=== PATIENT | female | born 1940 | race Caucasian/White ===

== ENCOUNTER 2016-12-10 05:11 | Emergency (ER) | payer MEDICARE, OTHER ==
[~2016-12-10] VITALS: Ht 162.6 cm; Wt 68.2 kg
[~2016-12-10 05:11] MED LIST: CALC-975 PO; CARB15DR74 OP; CHOL500051 PO; DOCU240C41 PO; HYDR25TA4 PO; MELA1TAB10 PO; MULT1CAP33 PO; OMEG500C PO; OXAZ10CA PO; OXYB5TAB10 PO; ZOLP5TAB6 PO
[2016-12-10 05:16] VITALS: BP 159/92; PULSE 66; RESP 16; O2SAT 94
--- NOTE | 2016-12-10 05:31 | ED.REPORT ---
HPI-Bite: Human/Animal Date of Service Dec 10, 2016 ED Provider: Roderick Wright MD Pt is a 76 year old female presenting to the ED after being stung by a bee on her left hand complaining of swelling. She denies any other swelling besides her hand, SOB, wheezing, fever, chills, cough, nausea, vomiting, or diarrhea. Nursing Notes Stated Complaint: BEE STING LEFT HAND Chief Complaint: Skin Rash/Abscess Nursing Notes Reviewed: Yes Allergies: Coded Allergies: Penicillins (Verified Allergy, Unknown, Unknown, 12/10/16) adhesive tape (Verified Allergy, Unknown, 12/10/16) Scheduled Hydrochlorothiazide (Hydrochlorothiazide) 25 Mg Tablet 25 MG PO DAILY Melatonin (Melatonin 1 mg Tablet) 1 Each Tablet 1 MG PO HS Oxybutynin Chloride (Oxybutynin Chloride) 5 Mg Tablet 10 MG PO TID Scheduled PRN Zolpidem (Zolpidem) 5 Mg Tablet 5 MG PO HS PRN PRN For Insomnia Miscellaneous Medications Calcium Carbonate/Vitamin D3 (Calcium 600 + Vit D3 Caplet) 600 Mg-800 Tablet 1 EACH PO Carboxymethylcellulose Sodium (Refresh Tears) 15 Ml Drops 15 ML OP Cholecalciferol (Vitamin D3) (Vitamin D) 5,000 Unit Capsule 400 UNIT PO Docusate Calcium (Stool Softener) 240 Mg Capsule 100 MG PO Multivitamin (Multivitamins) 1 Each Capsule 1 EACH PO [place]-3 Fatty Acids (Fish Oil) 500 Mg Capsule.dr 1,000 MG PO Oxazepam (Oxazepam) 10 Mg Capsule 10 MG PO General Time Seen by MD: 05:29 Chief Complaint Other (Bee sting) Hx Obtained From: Patient Arrived By: Walk-in Onset Occurred: Just prior to arrival Symptom Duration: Since onset Recent Healthcare: No recent doctor visit, No recent hospitalization Similar Sx Previous: No Past Medical History Past Medical History denies Past Surgical History denies Smoking History Former Smoker Ambulatory Status Independent Review of Systems Constitutional: Denies: Chills, Fever Skin: Reports Swelling Complete sys rev & neg: except as marked. Respiratory: Denies: Non-productive cough, Shortness of breath, Wheezing GI: Denies: Diarrhea, Nausea, Vomiting Physical Exam Vital Signs Vital Signs (First) Date Time Temp Pulse Resp B/P Pulse Ox O2 Delivery O2 Flow Rate FiO2 12/10/16 05:16 36.5 66 16 159/92 94 Room Air Initial VS: Reviewed, Vital signs abnormal Head / Eyes: Atraumatic, Normocephalic, PERRL ENT: Mucous membranes moist, Conjunctiva normal, No scleral icterus Neck: Supple, Non-tender, Full range of motion Respiratory: Breath sounds normal, Clear to auscultation, No respiratory distress Cardiovascular: Regular rate & rhythm, Intact distal pulses Abdomen / GI: Soft, Non-tender, No guarding, No rebound, No distention Neurologic: Alert, Oriented, Nonfocal Psychiatric: Mood/affect normal, Behavior normal, Normal thought content General/Constitutional: Awake, Alert, No acute distress, Well appearing Skin: Atraumatic, Color NL, No rash Wrist / Hand: No deformity, Neurologic intact, Vascular intact Bite at base of 3rd and 4th fingers with swelling at both the palmar and dorsal surface Re-Eval/Medical Decision Med Decision/Clinical Course Uncomplicated local reaction to bee sting in her hand. No evidence of systemic reaction. Re-Evaluation/Progress : Time of Eval: 05:36 Patient Status: Condition improved Re-Evaluation/Progress Note: Discussed plan for discharge. Pt understands and agrees with plan. Counseled Regarding: Diagnosis, Lab results, Need for follow-up, When/why to return to ED Discharge & Departure Impression: Primary Impression: Bee sting Encounter type: initial encounter Injury intent: accidental or unintentional Qualified Code: T63.441A - Toxic effect of venom of bees, accidental (unintentional), initial encounter Disposition: Home Discharge Condition All VS Reviewed: Yes Condition: Improved Patient Instructions: Insect Bite or Sting (ED) Additional Instructions: Benadryl 25 mg 3 times a day as needed. Topical hydrocortisone may help reduce the swelling. Follow-up quickly if you have any respiratory distress. Referrals: Javi Miguel MD (PCP) Drea[facility] Attestation Portions of this note were transcribed by Margo Fernando. I, Dr. Wright personally performed the history, physical exam and medical decision-making; I reviewed and confirmed the accuracy of the information in the transcribed note. Signed by: Yvon Lopez, 12/10/2016. copies to: Javi Miguel MD, Howard L MD Dec 10, 2016 05:31 MARGO FERNANDO Dec 10, 2016 05:39
[2016-12-10] MEDS ORDERED: diphenhydrAMINE 50 mg Capsule PO ONE (05:35)
[2016-12-10 06:19] VITALS: BP 180/90; PULSE 63; RESP 18; O2SAT 96
== END 2016-12-10 06:25 | disposition home or self-care (01) ==
LOC: SED 05:11
DX: T63.441A Toxic effect of venom of bees, accidental (unintentional), initial encounter (principal); Y93.89 Activity, other specified; Y92.89 Other specified places as the place of occurrence of the external cause; Y99.8 Other external cause status; Z87.891 Personal history of nicotine dependence; Z88.0 Allergy status to penicillin; Z91.048 Other nonmedicinal substance allergy status